=== PATIENT | male | born 1950 | race Two or more races ===

== ENCOUNTER 2025-03-07 09:45 | Inpatient (IN) | payer MEDICAID ==
[2025-03-07] VITALS (13 sets, daily range): BP systolic 111–139; BP diastolic 55–89; PULSE 78–87; RESP 16–20; TEMP 36.3–36.6696; O2SAT 96–100
[~2025-03-07] VITALS: Ht 175.3 cm; Wt 55.1 kg
[2025-03-07 10:11] LABS: HEMATOCRIT. 35.1 % (42.0-52.0); MEAN CORPUSCULAR HEMOGLOBIN 22.2 pg (28.0-32.0); MEAN CORPUSCULAR HGB CONC 31.4 g/dL (31.0-37.0); MEAN CORPUSCULAR VOLUME 70.7 fL (80.0-94.0); PLATELET 209 x1000/uL (130-400); RED BLOOD CELL COUNT 4.96 mill/uL (4.7-6.1); RED CELL DISTRIBUTION WIDTH 18.2 % (11.6-14.6); WHITE BLOOD COUNT 7.2 x1000/uL (4.5-11.0)
[2025-03-07 10:14] LABS: DIFFERENTIAL COMMENT 1
[2025-03-07 10:21] LABS: CHLORIDE 93 mEq/L (98-107); SODIUM 132 mEq/L (136-145)
[2025-03-07 10:22] LABS: CARBON DIOXIDE 27 mEq/L (21-32)
[2025-03-07 10:23] LABS: CALCIUM 7.6 mg/dL (8.7-10.4)
[2025-03-07 10:27] LABS: GLUCOSE 159 mg/dL (70-105); UREA NITROGEN BLOOD 89 mg/dL (9-23)
[2025-03-07 10:34] LABS: CREATININE 9.4 mg/dL (0.6-1.3)
[2025-03-07 10:35] LABS: TROPONIN I HIGH SENSITIVITY 4251 ng/L (3.0-53)
[2025-03-07 10:46] LABS: PLATELET ESTIMATE NORMAL
[2025-03-07 10:47] LABS: ANISOCYTOSIS 2+; MICROCYTOSIS 1+
[2025-03-07] MEDS: FUROSEMIDE 100MG/10ML VIAL IV STA (10:50)
[2025-03-07] MEDS: ENOXAPARIN 80MG/0.8ML SYR SUBCUT ONE (10:52)
[2025-03-07] MEDS: CALCIUM CHLORIDE 1GM/10ML SYR IV ONE (10:53)
[2025-03-07] MEDS: DEXTROSE 50% WATER 50ML SYRINGE IV ONE (10:53)
[2025-03-07] MEDS: SODIUM BICARBONATE 8.4% 50MEQ/50ML SYR IV ONE (10:54)
[2025-03-07] MEDS: INSULIN REGULAR (HUMULIN R) 1000UNITS/10ML VIAL IV ONE (10:54)
[2025-03-07] MEDS: ALBUTEROL (0.083%) 2.5MG/3ML NEB HHN ONE (11:12)
[2025-03-07] MEDS: ASPIRIN 81MG TABLET PO SCH (12:00)
[2025-03-07] MEDS ORDERED: CLONIDINE 0.1MG TABLET PO PRN (12:45)
[2025-03-07] MEDS ORDERED: DOCUSATE SODIUM 100MG CAPSULE PO PRN (12:45)
[2025-03-07] MEDS ORDERED: ONDANSETRON HCL 4MG/2ML INJ IV PRN (12:45)
[2025-03-07] MEDS ORDERED: DEXTROSE 50% WATER 50ML SYRINGE IV PRN (12:45)
[2025-03-07] MEDS ORDERED: IPRATROPIUM/ALBUTEROL 0.5-3(2.5)MG/3ML NEB HHN PRN (12:45)
[2025-03-07] MEDS ORDERED: ACETAMINOPHEN 325MG TABLET PO PRN (12:45)
[2025-03-07] MEDS: INSULIN LISPRO 100 UNITS/ML SUBCUT SCH (12:50)
[2025-03-07] MEDS ORDERED: SEVE800T8 PO (13:05)
[2025-03-07] MEDS ORDERED: AMLO2.5T45 PO (13:05)
[2025-03-07] MEDS ORDERED: HEPARIN 5000 UNITS/ML VIAL IV SCH (13:45)
[2025-03-07] MEDS: BLOOD SUGAR DIAGNOSTIC STRIP TEST SCH (17:20)
[2025-03-07 17:49] LABS: HEMATOCRIT. 39.9 % (42.0-52.0); HEMOGLOBIN. 12.6 g/dL (14.0-18.0); MEAN CORPUSCULAR HEMOGLOBIN 22.6 pg (28.0-32.0); MEAN CORPUSCULAR HGB CONC 31.5 g/dL (31.0-37.0); MEAN CORPUSCULAR VOLUME 71.7 fL (80.0-94.0); MEAN PLATELET VOLUME 9.2 fl (7.4-10.4); PLATELET 262 x1000/uL (130-400); RED BLOOD CELL COUNT 5.56 mill/uL (4.7-6.1); RED CELL DISTRIBUTION WIDTH 18.1 % (11.6-14.6); WHITE BLOOD COUNT 8.1 x1000/uL (4.5-11.0)
[2025-03-07 17:56] LABS: DIFFERENTIAL COMMENT 1
[2025-03-07 18:02] LABS: INR 1.1; PARTIAL THROMBOPLASTIN TIME 35.6 sec (23.4-31.0); PROTHROMBIN TIME 11.9 sec (9.6-11.0)
[2025-03-07 18:05] LABS: CREATINE KINASE MB FRACTION 2.2 ng/mL (0.5-3.6)
[2025-03-07 18:11] LABS: PLATELET ESTIMATE NORMAL
[2025-03-07 18:12] LABS: HYPOCHROMASIA 1+; MICROCYTOSIS 2+; T4 FREE 1.7 ng/dL (0.89-1.76); THYROID STIMULATING HORMONE 0.9 uIU/mL (0.55-4.78)
[2025-03-07 18:21] LABS: HEPATITIS B SURFACE ANTIGEN NEGATIVE (Negative)
[2025-03-07 18:42] LABS: HEPATITIS A AB IGM NEGATIVE (Negative); HEPATITIS B CORE AB IGM NEGATIVE (Negative)
[2025-03-07 18:43] LABS: HEPATITIS C AB NON REACTIVE (Neg) (Negative)
[2025-03-07] MEDS: ATORVASTATIN CALCIUM 40MG TABLET PO SCH (21:15)
[2025-03-07] MEDS: HEPARIN 25,000 UNITS PREMIX 250 ML IV SCH (21:23)
[2025-03-08] VITALS: BP 115/60; PULSE 78; RESP 20; TEMP 30.8; O2SAT 98
[2025-03-08 00:36] LABS: CREATINE KINASE MB FRACTION 1.4 ng/mL (0.5-3.6)
[2025-03-08 04:00] VITALS: BP 122/62; PULSE 73; RESP 20; TEMP 36.5; O2SAT 99
[2025-03-08 04:48] LABS: CALCIUM 8.6 mg/dL (8.7-10.4); CARBON DIOXIDE 28 mEq/L (21-32); CHLORIDE 101 mEq/L (98-107); POTASSIUM 5.6 mEq/L (3.5-5.1); SODIUM 138 mEq/L (136-145)
[2025-03-08 04:51] LABS: INR 1.1; PARTIAL THROMBOPLASTIN TIME 39.6 sec (23.4-31.0); PROTHROMBIN TIME 12.1 sec (9.6-11.0)
[2025-03-08 04:53] LABS: GLUCOSE 104 mg/dL (70-105); IRON 23 ug/dL (65-175)
[2025-03-08 04:54] LABS: LDL CHOLESTEROL 64 mg/dL (5-100); TRIGLYCERIDE 67 mg/dL (0-150); UREA NITROGEN BLOOD 62 mg/dL (9-23)
[2025-03-08 04:55] LABS: ALANINE AMINOTRANSFERASE 7 IU/L (10-49); ALBUMIN 4.1 g/dL (3.2-4.8); ASPARTATE AMINOTRANSFERASE 21 IU/L (<34); BILIRUBIN DIRECT 0.2 mg/dL (<=3.0); CHOLESTEROL 106 mg/dL (<200); HDL CHOLESTEROL 33 mg/dL (>55)
[2025-03-08 04:56] LABS: BILIRUBIN TOTAL 0.7 mg/dL (0.1-1.0); PHOSPHORUS 6.2 mg/dL (2.5-4.9); PROTEIN TOTAL 8.3 g/dL (6.0-8.3); TOTAL IRON BINDING CAPACITY 510 ug/dl (250-425)
[2025-03-08 05:00] LABS: FERRITIN 1106 ng/mL (22-322)
[2025-03-08 05:01] LABS: FOLIC ACID (FOLATE) SERUM > 20.00 ng/mL (>5.38); VITAMIN B12 SERUM 1701 pg/mL (211-911)
[2025-03-08 05:08] LABS: CREATININE 8.2 mg/dL (0.6-1.3)
[2025-03-08] MEDS: HEPARIN 5000 UNITS/ML VIAL IV PRN (05:24)
[2025-03-08 05:30] LABS: HEMATOCRIT. 34.4 % (42.0-52.0); HEMOGLOBIN. 10.8 g/dL (14.0-18.0); MEAN CORPUSCULAR HEMOGLOBIN 22.5 pg (28.0-32.0); MEAN CORPUSCULAR HGB CONC 31.4 g/dL (31.0-37.0); MEAN CORPUSCULAR VOLUME 71.7 fL (80.0-94.0); MEAN PLATELET VOLUME 9.5 fl (7.4-10.4); PLATELET 201 x1000/uL (130-400); RED CELL DISTRIBUTION WIDTH 18.1 % (11.6-14.6); WHITE BLOOD COUNT 4.7 x1000/uL (4.5-11.0)
[2025-03-08 05:52] LABS: DIFFERENTIAL COMMENT 1
[2025-03-08 08:00] VITALS: BP 125/59; PULSE 70; RESP 18; TEMP 36.6; O2SAT 100
[2025-03-08] MEDS: SODIUM ZIRCONIUM CYCLOSILICATE 10GM/PACKET PO NR ×2 (10:12→22:27)
[2025-03-08] MEDS: FUROSEMIDE 40MG/4ML VIAL IVP SCH (10:12)
[2025-03-08] MEDS: ACETAMINOPHEN 325MG TABLET PO PRN (11:38)
[2025-03-08 11:49] LABS: ANISOCYTOSIS 2+; MICROCYTOSIS 2+; PLATELET ESTIMATE NORMAL
[2025-03-08 12:00] VITALS: BP 112/62; PULSE 72; RESP 18; TEMP 36.4; O2SAT 100
[2025-03-08] MEDS ORDERED: LIDOCAINE HCL 1% 20ML VIAL ONE (14:12)
[2025-03-08] MEDS ORDERED: HEPARIN 1000 UNITS/ML 10ML ONE (14:12)
[2025-03-08] MEDS ORDERED: IODIXANOL 320MG/ML 100 ML BOTTLE IV ONE (14:12)
[2025-03-08] MEDS ORDERED: VERAPAMIL HCL 2.5 MG/1 ML 2ML VIAL IV ONE (14:13)
[2025-03-08] MEDS ORDERED: DIPHENHYDRAMINE 50MG/ML VIAL ONE (14:13)
[2025-03-08 16:00] VITALS: BP 125/62; PULSE 78; RESP 18; TEMP 36.6; O2SAT 98
[2025-03-08] MEDS: LACTULOSE 20G/30ML UDC PO NR (17:08)
[2025-03-08 20:00] VITALS: BP 115/62; PULSE 80; RESP 18; TEMP 36.1; O2SAT 98
[2025-03-09] VITALS (12 sets, daily range): BP systolic 121–151; BP diastolic 66–92; PULSE 69–92; RESP 15–19; TEMP 35.8–37.3; O2SAT 97–100
[2025-03-09 07:54] LABS: HEMATOCRIT. 33.2 % (42.0-52.0); HEMOGLOBIN. 10.3 g/dL (14.0-18.0); MEAN CORPUSCULAR HEMOGLOBIN 22.4 pg (28.0-32.0); MEAN CORPUSCULAR HGB CONC 31.2 g/dL (31.0-37.0); MEAN CORPUSCULAR VOLUME 71.8 fL (80.0-94.0); MEAN PLATELET VOLUME 9.6 fl (7.4-10.4); PLATELET 219 x1000/uL (130-400); RED BLOOD CELL COUNT 4.62 mill/uL (4.7-6.1); RED CELL DISTRIBUTION WIDTH 17.8 % (11.6-14.6); WHITE BLOOD COUNT 3.8 x1000/uL (4.5-11.0)
[2025-03-09 07:57] LABS: POTASSIUM 6.1 mEq/L (3.5-5.1)
[2025-03-09 07:58] LABS: CALCIUM 7.3 mg/dL (8.7-10.4)
[2025-03-09 07:59] LABS: DIFFERENTIAL COMMENT 1
[2025-03-09 08:27] LABS: CREATININE 10.3 mg/dL (0.6-1.3)
[2025-03-09 08:54] LABS: ANISOCYTOSIS 1+; MICROCYTOSIS 1+; PLATELET ESTIMATE NORMAL
[2025-03-09] MEDS ORDERED: HEPARIN 1000 UNITS/ML 10ML ONE (12:39)
[2025-03-09] MEDS ORDERED: VERAPAMIL HCL 2.5 MG/1 ML 2ML VIAL IV ONE (12:39)
[2025-03-09] MEDS ORDERED: IODIXANOL 320MG/ML 100 ML BOTTLE IV ONE (12:39)
[2025-03-09] MEDS ORDERED: LIDOCAINE HCL 1% 20ML VIAL ONE (12:39)
[2025-03-09] MEDS ORDERED: MIDAZOLAM HCL 2 MG/2 ML VIAL ONE (13:05)
[2025-03-09] MEDS ORDERED: DIPHENHYDRAMINE 50MG/ML VIAL ONE (13:05)
[2025-03-09] MEDS ORDERED: FENTANYL CITRATE/PF 50MCG/ML 2ML VIAL ONE (13:05)
[2025-03-09] MEDS ORDERED: ACETAMINOPHEN 325MG TABLET PO PRN (15:00)
[2025-03-09] MEDS ORDERED: ATROPINE SULFATE 1MG/10ML SYR IV PRN (15:00)
[2025-03-09] MEDS: CEFTRIAXONE 1GM/50ML 50 ML IV NR (18:29)
[2025-03-09] MEDS: FLUCONAZOLE 100MG TABLET PO NR (18:43)
[2025-03-09] MEDS: VANCOMYCIN 1G PREMIX 200 ML IV NR (19:27)
[2025-03-09] MEDS: HEPARIN 5000 UNITS/ML VIAL IV PRN (21:21)
[2025-03-10] VITALS (12 sets, daily range): BP systolic 113–143; BP diastolic 68–78; PULSE 72–90; RESP 15–19; TEMP 36.28068–37.3; O2SAT 98–100
[2025-03-10 00:41] LABS: BODY FLUID MONOCYTES 1 %; BODY FLUID RBC 107 /cu mm (0-2000); BODY FLUID WBC 27 /cu mm (0-200)
[2025-03-10 07:48] LABS: HEMATOCRIT. 35.3 % (42.0-52.0); MEAN CORPUSCULAR HEMOGLOBIN 22.1 pg (28.0-32.0); MEAN CORPUSCULAR HGB CONC 31.1 g/dL (31.0-37.0); MEAN CORPUSCULAR VOLUME 70.9 fL (80.0-94.0); PLATELET 277 x1000/uL (130-400); RED BLOOD CELL COUNT 4.97 mill/uL (4.7-6.1); WHITE BLOOD COUNT 4.6 x1000/uL (4.5-11.0)
[2025-03-10 07:59] LABS: DIFFERENTIAL COMMENT 1
[2025-03-10 08:12] LABS: POTASSIUM 5.8 mEq/L (3.5-5.1)
[2025-03-10 08:13] LABS: CALCIUM 7.9 mg/dL (8.7-10.4)
[2025-03-10 08:30] LABS: CREATININE 9.6 mg/dL (0.6-1.3)
[2025-03-10 09:28] LABS: ANISOCYTOSIS 1+; MICROCYTOSIS 2+; PLATELET ESTIMATE NORMAL
[2025-03-10] MEDS ORDERED: LIP40 PO (10:34)
[2025-03-10] MEDS ORDERED: ASPI-1160 PO (10:34)
[2025-03-10] MEDS: IRON SUCROSE COMPLEX 100 MG/5 ML ML IV NR (12:49)
== END 2025-03-10 18:00 | disposition home or self-care (01) | DRG 190 ==
LOC: ER 09:45 → 6WST 10:35 → EDBEDREQTM 10:58 → EDBEDREQ 10:58
PROVIDERS: ADMIT Internal Medicine; ATTEND Internal Medicine
PROC: 5A1D70Z Performance of Urinary Filtration, Intermittent, Less than 6 Hours Per Day (ICD-10-PCS; 2025-03-07)
PROC: 4A023N7 Measurement of Cardiac Sampling and Pressure, Left Heart, Percutaneous Approach (ICD-10-PCS; principal; 2025-03-09)
PROC: B2111ZZ Fluoroscopy of Multiple Coronary Arteries using Low Osmolar Contrast (ICD-10-PCS; 2025-03-09)
PROC: 5A1D70Z Performance of Urinary Filtration, Intermittent, Less than 6 Hours Per Day (ICD-10-PCS; 2025-03-09)
PROC: 5A1D70Z Performance of Urinary Filtration, Intermittent, Less than 6 Hours Per Day (ICD-10-PCS; 2025-03-10)
DX: I21.4 Non-ST elevation (NSTEMI) myocardial infarction (principal); I12.0 Hypertensive chronic kidney disease with stage 5 chronic kidney disease or end stage renal disease; N18.6 End stage renal disease; D63.1 Anemia in chronic kidney disease; I47.19 Other supraventricular tachycardia; E87.5 Hyperkalemia; I25.10 Atherosclerotic heart disease of native coronary artery without angina pectoris; K59.00 Constipation, unspecified; R04.0 Epistaxis; Z99.2 Dependence on renal dialysis; I25.2 Old myocardial infarction; Z79.82 Long term (current) use of aspirin
CPT/HCPCS: 36415; 71045; 74018; 74176; 76700; 80048; 80061; 80076; 82550; 82553; 82607; 82728; 82746; 82962; 83036; 83540; 83550; 83735; 83880; 84100; 84439; 84443; 84480; 84484; 85025; 86705; 86709; 87340; 90935; 93005; 93306; 93458; 94070; 94640; 94664; 99291; A4606; C1769; C1887; C1893; J0696; J1200; J1644; J1650; J1815; J1940; J2250; J3010; J3370; J3490; Q9967